=== PATIENT | male | born 1955 | race Two or more races ===

== ENCOUNTER 2018-02-24 10:00 | Outpatient (AMBR) | payer MEDICAID, SELFPAY ==
--- NOTE | 2018-01-28 09:01 | PTNOTE_ITS ---
PT OP Initial Eval Patient Information Visit Reasons: right total knee Medical Diagnosis: M25.56 Treatment Dx #1: R knee pain Start of Care: 01/28/18 Date of Onset: 12/16/17 Initial Assessment Subjective Pt is 62 yr old swedish speaking male s/p R TKA almost 6 weeks ago. He had been working in the [employer] but hasn't been working since before surgery. He is ambulating with SPC limited distances with some knee pain about 6/10. PMH: knee OA Imaging: MRI in EMR Pt goal: to walk better Objective R knee AROM: Flexion: 90 deg Extension: -3 deg SLR: 65 deg with 15 deg extensor lag Strength: Quads and hamstrings 4-/5 within available range Antalgic gait pattern with decreased WB tolerance on R LE Assessment Pt presentation consistent with post op R TKA with decreased ROM, strength and WB tolerance. Pt ambulates with decreased WB on R. Pt has pain at first resistance into knee flexion that limits end-range assessment and PROM. Pt can SLR slowly and has slight extensor lag. Pt has good rehab potential with attainable functional improvement. Short Term and Correction Goals 1. Independent with HEP 2. Improved knee ROM to 0-120 deg 3. Improved quad and hamstring strength to 4+/5 4. Improved ambulatory tolerance to community distances with symmetrical gait pattern without assistive device Treatment Plan Pt has 5 visits authorized and will be scheduled for 2x a week. 1. Manual therapy 2. Therex 3. Modalities as indicated, moist heat, ice, estim Frequency and Duration 2x a week for 8 weeks Certification Dates: 01/28/18 to 04/30/18 Office Procedures PT Procedures PT Date of Service: 01/28/18 OP PT Eval Mod Complex 30 minutes: Yes
--- NOTE | 2018-02-01 15:46 | PT.ODAYNRPT ---
PT Outpatient Daily Note Date of Service: February 01, 2018 OP Daily Note Visit Reasons: right total knee Outpatient Physical Therapy Treatment Date: 02/01/18 Subjective: About the same as time of eval Objective: See F/S for therex MT: PPM into flexion and extension with 15 holds x10' total PROM: flexion: 106 deg Assessment: Improved knee flexion PROM to 106 deg today with overpressure and extension to -3 deg. Plan: Continue per POC Length of Time (minutes) of Treatment: 30 Minutes Office Procedures PT Procedures PT Date of Service: 02/01/18 Therapeutic Exercise 15 minutes: Yes Manual Weld Lay Out Worker 15 minutes: Yes PT Procedures PT Date of Service: 01/28/18 OP PT Eval Mod Complex 30 minutes: Yes
--- NOTE | 2018-02-03 20:26 | PT.ODAYNRPT ---
PT Outpatient Daily Note Date of Service: February 03, 2018 OP Daily Note Visit Reasons: right total knee Outpatient Physical Therapy Treatment Date: 02/03/18 Objective: See F/S for therex MT: PPM into flexion and extension with 15 holds x10' total PROM: Assessment: Improved knee extension PROM with overpressure to -3 deg. Plan: Continue per POC Length of Time (minutes) of Treatment: 30 Minutes Office Procedures PT Procedures PT Date of Service: 02/01/18 Therapeutic Exercise 15 minutes: Yes Manual Behavioral Sciences Department Chair 15 minutes: Yes PT Procedures PT Date of Service: 01/28/18 OP PT Eval Mod Complex 30 minutes: Yes PT Procedures PT Date of Service: 02/03/18 Therapeutic Exercise 15 minutes: Yes Manual Behavioral Sciences Department Chair 15 minutes: Yes
--- NOTE | 2018-02-05 16:36 | PTNOTE_ITS ---
PT Outpatient Daily Note Date of Service: February 05, 2018 OP Daily Note Visit Reasons: right total knee Outpatient Physical Therapy Treatment Date: 02/05/18 Subjective: pt reported having pain but tolerable. Objective: see flow sheet. Assessment: during MT of knee flexion pt did not c/o pain nor did he express any discomfort. pt was calm and tolerated well. with each rep of stretch pt gained a little more ROM. pt had difficulty understanding monster walks using thera band so moved onto the next ther ex. during heel slides cued pt to slow down and not jerk his knees as he extends them back down but needs more practice. Plan: continue POC per PT. Length of Time (minutes) of Treatment: 30 Minutes Office Procedures PT Procedures PT Date of Service: 02/01/18 Therapeutic Exercise 15 minutes: Yes Manual Vehicle Washer 15 minutes: Yes PT Procedures PT Date of Service: 01/28/18 OP PT Eval Mod Complex 30 minutes: Yes PT Procedures PT Date of Service: 02/03/18 Therapeutic Exercise 15 minutes: Yes Manual Vehicle Washer 15 minutes: Yes PT Procedures PT Date of Service: 02/05/18 Therapeutic Exercise 30 minutes: Yes
--- NOTE | 2018-02-09 15:19 | PTNOTE_ITS ---
PT Outpatient Daily Note Date of Service: February 09, 2018 OP Daily Note Visit Reasons: right total knee Outpatient Physical Therapy Treatment Date: 02/09/18 Subjective: Pt reports the knee always hurts but he is able to do his ADL's. Objective: See F/S for therex MT: PPM into flexion and extension with 15 holds x10' total PROM: 113 deg Assessment: Improved knee flexion PROM with overpressure to 113 deg. Plan: Continue per POC Length of Time (minutes) of Treatment: 30 Minutes Office Procedures PT Procedures PT Date of Service: 02/01/18 Therapeutic Exercise 15 minutes: Yes Manual Unarmed Security Guard 15 minutes: Yes PT Procedures PT Date of Service: 02/09/18 Therapeutic Exercise 15 minutes: Yes Manual Unarmed Security Guard 15 minutes: Yes PT Procedures PT Date of Service: 01/28/18 OP PT Eval Mod Complex 30 minutes: Yes PT Procedures PT Date of Service: 02/03/18 Therapeutic Exercise 15 minutes: Yes Manual Unarmed Security Guard 15 minutes: Yes PT Procedures PT Date of Service: 02/05/18 Therapeutic Exercise 30 minutes: Yes
--- NOTE | 2018-02-12 13:06 | PT.ODAYNRPT ---
PT Outpatient Daily Note Date of Service: February 12, 2018 OP Daily Note Visit Reasons: right total knee Outpatient Physical Therapy Treatment Date: 02/12/18 Subjective: pt reported walking at least a mile and uses his stationary bike at home as well. pt is motivated in getting back to work. Objective: see flow sheet. Assessment: used GTB today with standing exercises in which he tolerated well but had a little difficulty understanding the monster walks. fair quad contraction during SLR as there is still slight knee flexion. with MT in knee flexion pt does really well with no complaints nor facial expressions. observed good knee flexion. LLPS with ice pack after ther ex to improve knee extension. advised pt to continue HEP and ice pack if needed. Plan: continue POC per PT. Length of Time (minutes) of Treatment: 30 Minutes Office Procedures PT Procedures PT Date of Service: 02/01/18 Therapeutic Exercise 15 minutes: Yes Manual Immigration Associate 15 minutes: Yes PT Procedures PT Date of Service: 02/09/18 Therapeutic Exercise 15 minutes: Yes Manual Immigration Associate 15 minutes: Yes PT Procedures PT Date of Service: 02/12/18 Therapeutic Exercise 15 minutes: Yes Manual Immigration Associate 15 minutes: Yes PT Procedures PT Date of Service: 01/28/18 OP PT Eval Mod Complex 30 minutes: Yes PT Procedures PT Date of Service: 02/03/18 Therapeutic Exercise 15 minutes: Yes Manual Immigration Associate 15 minutes: Yes PT Procedures PT Date of Service: 02/05/18 Therapeutic Exercise 30 minutes: Yes
--- NOTE | 2018-02-17 15:57 | PT.ODAYNRPT ---
PT Outpatient Daily Note Date of Service: February 17, 2018 OP Daily Note Visit Reasons: right total knee Outpatient Physical Therapy Treatment Date: 02/17/18 Subjective: Pt reports the knee always hurts but he is able to do his ADL's. Objective: See F/S for therex MT: PPM into flexion with 15 holds x7' total PROM: 113 deg Assessment: Improved knee flexion PROM with overpressure to 113 deg. Plan: Continue per POC pending authorization Length of Time (minutes) of Treatment: 30 Minutes Office Procedures PT Procedures PT Date of Service: 02/01/18 Therapeutic Exercise 15 minutes: Yes Manual Station Baggage Agent 15 minutes: Yes PT Procedures PT Date of Service: 02/09/18 Therapeutic Exercise 15 minutes: Yes Manual Station Baggage Agent 15 minutes: Yes PT Procedures PT Date of Service: 02/12/18 Therapeutic Exercise 15 minutes: Yes Manual Station Baggage Agent 15 minutes: Yes PT Procedures PT Date of Service: 02/17/18 Therapeutic Exercise 30 minutes: Yes PT Procedures PT Date of Service: 01/28/18 OP PT Eval Mod Complex 30 minutes: Yes PT Procedures PT Date of Service: 02/03/18 Therapeutic Exercise 15 minutes: Yes Manual Station Baggage Agent 15 minutes: Yes PT Procedures PT Date of Service: 02/05/18 Therapeutic Exercise 30 minutes: Yes
--- NOTE | 2018-02-22 13:05 | PT.ODAYNRPT ---
PT Outpatient Daily Note Date of Service: February 22, 2018 OP Daily Note Visit Reasons: right total knee Outpatient Physical Therapy Treatment Date: 02/22/18 Subjective: pt doing well upon visit. pt is very positive and has motivation in getting better. pt is compliant with HEP. Objective: see flow sheet. Assessment: while pt on TG squats noted slight knee flexion on the RLE as he extends his LEs. fair quad activation during SLR again there is slight knee flexion. during MT PROM of knee flexion and knee extension, pt tolerated well with no complaints nor facial expressions. no heavy breathing as pt seems relaxed. LLPS with ice pack post treatment for a few mins in which he did good with. Plan: continue POC per PT. Length of Time (minutes) of Treatment: 30 Minutes Office Procedures PT Procedures PT Date of Service: 02/01/18 Therapeutic Exercise 15 minutes: Yes Manual General Neurologist 15 minutes: Yes PT Procedures PT Date of Service: 02/09/18 Therapeutic Exercise 15 minutes: Yes Manual General Neurologist 15 minutes: Yes PT Procedures PT Date of Service: 02/12/18 Therapeutic Exercise 15 minutes: Yes Manual General Neurologist 15 minutes: Yes PT Procedures PT Date of Service: 02/17/18 Therapeutic Exercise 30 minutes: Yes PT Procedures PT Date of Service: 02/22/18 Therapeutic Exercise 15 minutes: Yes Manual General Neurologist 15 minutes: Yes PT Procedures PT Date of Service: 01/28/18 OP PT Eval Mod Complex 30 minutes: Yes PT Procedures PT Date of Service: 02/03/18 Therapeutic Exercise 15 minutes: Yes Manual General Neurologist 15 minutes: Yes PT Procedures PT Date of Service: 02/05/18 Therapeutic Exercise 30 minutes: Yes
--- NOTE | 2018-02-24 15:57 | PT.ODAYNRPT ---
PT Outpatient Daily Note Date of Service: February 24, 2018 OP Daily Note Visit Reasons: right total knee Outpatient Physical Therapy Treatment Date: 02/24/18 Subjective: My knee is doing well, hurting less Objective: See F/S for therex MT: PPM into flexion with 15 holds x5' total PROM: 120 deg Assessment: Improved knee flexion PROM with overpressure to 120 deg. He can ambulate with less lateral lean to the R with cues and the mirror. Plan: Continue per POC Length of Time (minutes) of Treatment: 30 Minutes Office Procedures PT Procedures PT Date of Service: 02/01/18 Therapeutic Exercise 15 minutes: Yes Manual Functional Support Analyst 15 minutes: Yes PT Procedures PT Date of Service: 02/09/18 Therapeutic Exercise 15 minutes: Yes Manual Functional Support Analyst 15 minutes: Yes PT Procedures PT Date of Service: 02/12/18 Therapeutic Exercise 15 minutes: Yes Manual Functional Support Analyst 15 minutes: Yes PT Procedures PT Date of Service: 02/17/18 Therapeutic Exercise 30 minutes: Yes PT Procedures PT Date of Service: 02/22/18 Therapeutic Exercise 15 minutes: Yes Manual Functional Support Analyst 15 minutes: Yes PT Procedures PT Date of Service: 01/28/18 OP PT Eval Mod Complex 30 minutes: Yes PT Procedures PT Date of Service: 02/03/18 Therapeutic Exercise 15 minutes: Yes Manual Functional Support Analyst 15 minutes: Yes PT Procedures PT Date of Service: 02/05/18 Therapeutic Exercise 30 minutes: Yes PT Procedures PT Date of Service: 02/24/18 Therapeutic Exercise 30 minutes: Yes
== END 2018-02-26 23:59 | disposition home or self-care (01) ==
PROVIDERS: PCP Physician Assistant; Referring Provider Physician Assistant; Visit Provider Orthopaedic Surgery
DX: M25.561 Pain in right knee (principal); Z96.651 Presence of right artificial knee joint
CPT/HCPCS: 97110; 97140; 97162

== ENCOUNTER → 2024-12-15 | Outpatient (CLI) | payer MEDICARE, MEDICAID, SELFPAY ==
--- NOTE | 2024-12-15 11:53 | XR_ITS ---
Examination: Shoulder,left, 3 views Technique: Shoulder AP internal rotation, AP external rotation, Y view shoulder, 3 views Exam date and time :December 15, 2024 1214 hours INDICATIONS: Left shoulder pain 2 months. FINDINGS: Advanced osteoarthritis glenohumeral joint, severe joint narrowing No fractures or dislocation IMPRESSION: Advanced osteoarthritis glenohumeral joint
== END | disposition home or self-care (01) ==
LOC: CDIM 11:38
PROVIDERS: Referring Provider Physician Assistant; Visit Provider Physician Assistant
DX: M19.012 Primary osteoarthritis, left shoulder (principal)
CPT/HCPCS: 73030